=== PATIENT | female | born 1990 ===

== ENCOUNTER 2016-06-11 07:45 | Inpatient (IN) | payer MEDICAID ==
[~2016-06-11] VITALS: Ht 152.4 cm; Wt 55.3 kg
--- NOTE | 2016-06-13 15:13 | OR ---
ADMIT: 06/11/2016 RM/LOC: 218 [facility] MR#: [id number] [id number] [facility] [address] [place] [id number] ARETHALIYA WHITNEYJOCY Sarkar [address] [place] [address] Operative/Delivery Room Report SEX: F AGE: 26 : 1990 SURGERY DATE: 06/11/2016 SURGEON: Phyllis Jensen MD PREOPERATIVE DIAGNOSES: 1. Intrauterine at 39-0/7th weeks. 2. Previous delivery x1. 3. Active labor. 4. Breech presentation. POSTOPERATIVE DIAGNOSES: 1. Intrauterine at 39-0/7th weeks. 2. Previous delivery x1. 3. Active labor. 4. Breech presentation. PROCEDURE: 1. Repeat low transverse . 2. Scar revision. ASSISTING: Sofia Sweet MD ANESTHESIA: Spinal. ESTIMATED BLOOD LOSS: 500 mL. URINE OUTPUT: 75 mL of blood tinged urine. IV FLUIDS: 1400 mL crystalloid. CONDITION: Good. COMPLICATIONS: None. COUNTS: Correct x4 per operating room staff. FINDINGS: 1. A viable male infant delivered in breech presentation at 10:00. Weight 2830 g. scores 8 and 9. 2. Normal maternal anatomy with keloid scar of previous and significant adhesions from the vesicouterine peritoneum to the lower uterine segment. DESCRIPTION OF PROCEDURE: The patient was taken to the operating room where spinal anesthesia was obtained without difficulty. She was then prepared and draped in the normal sterile fashion in the dorsal supine position with a leftward tilt. A Pfannenstiel skin incision was made in an elliptical fashion around the previous keloid scar which was held on tension with Allis clamps and excised with sharp dissection. The incision was then carried through the ADMIT: 06/11/2016 RM/LOC: 218 [facility] MR#: [id number] [address] [phone] JHONNY CARIAS [address] [place] [address] Operative/Delivery Room Report SEX: F AGE: 26 : 1990 underlying layer of fascia. The fascia was then incised in the midline and the incision extended laterally using the Perrin scissors. The superior aspect of the fascial incision was then grasped with the Beba clamps, elevated, and the underlying rectus muscles dissected off with Bovie electrocautery. Attention was then turned to the inferior aspect of this incision which, in a similar fashion, was grasped with the Beba clamps, elevated, and the underlying rectus muscle was dissected off with Bovie electrocautery. The rectus muscles were then in the midline and there was noted to be some adhesions to the peritoneum. The peritoneum was then entered bluntly very high in the abdomen and the incision extended superiorly and inferiorly with good visualization of the bladder. The bladder blade was then inserted and the vesicouterine peritoneum identified, tented up, and entered sharply with the Metzenbaum scissors. This incision was then extended laterally and a bladder flap created digitally. We did have some difficulty identifying the actual bladder as there were some significant amount of filmy adhesions from the vesicouterine peritoneal to the lower uterine segment. The bladder blade was removed and the Ojeda catheter was found. The bladder was noted to be anterior to the uterus well behind the bladder blade. The lower uterine segment was then incised in transverse fashion with the scalpel. The hysterotomy was then extended laterally manually. The infant's breech was elevated through the hysterotomy and delivered to the level of the bilateral scapula. The bilateral arms were then swept medially downward and the head was delivered with fundal pressure. The cord was doubly clamped and cut. The infant was handed off to the awaiting nurse. Cord blood was sent. The infant's weight was 2830 g. scores were 8 and 9. The placenta was then removed by fundal massage of the uterus. The uterus was then exteriorized and cleared of all clots and debris. The uterine incision was then repaired with #1 chromic in a running, locked fashion. A single [id number] stitch was used on the lower uterine segment to obtain excellent hemostasis. There was ADMIT: 06/11/2016 RM/LOC: 218 [facility] MR#: [id number] [address] [id number] JHONNY CARIAS [address] [place] [address] Operative/Delivery Room Report SEX: F AGE: 26 : 1990 some oozing from the multiple filmy adhesions of the vesicouterine peritoneum, which was made hemostatic with Bovie electrocautery. The uterus was then returned to the abdomen and the gutters were cleared of all clots. The hysterotomy was reinspected and found to be hemostatic. All the edges of the vesicouterine peritoneum were reinspected and found to be hemostatic as well. The subfascial compartments were inspected and no bleeding was noted. The fascia was then closed in a running fashion with 0 Vicryl. The subcutaneous tissue was closed in a running fashion with 2-0 Vicryl Rapide. The skin was closed in a subcuticular fashion with 4-0 Vicryl Rapide. The patient tolerated the procedure well. Sponge, lap, and needle counts were correct x4 per operating room staff. The patient and infant were taken to her room in stable condition. Phyllis Jensen MD/ lucila JOB #: [id number] CC: Phyllis Jensen, Attending Physician Phyllis Jensen, Family Physician
[2016-06-14] MEDS ORDERED: PRENATAL VIT1 TAB PO (20:28)
[2016-06-14] MEDS ORDERED: COLACE-DPS100 MG PO (20:29)
[2016-06-14] MEDS ORDERED: PERCOCET 5 DPS1 TAB PO (20:29)
[2016-06-14] MEDS ORDERED: MYLICON DPS80 MG PO (20:29)
[2016-06-14] MEDS ORDERED: MOTRIN-DPS800 MG PO (20:29)
--- NOTE | 2016-06-23 13:00 | HP ---
ADMIT: 06/11/2016 RM/LOC: [facility] MR#: [id number] [facility] [address] [place] [phone] JHONNY CARIAS [address] [place] [address] Pre-OP History and Physical SEX: F AGE: 26 : 1990 DATE OF SERVICE: 06/11/2016 CHIEF COMPLAINT: Need for section. HISTORY OF PRESENT ILLNESS: The patient is a 26-year-old, 3, para 1-1- 0-2, with an intrauterine at 39 and 0/7th weeks by a 10-week ultrasound, who presents to Labor and Delivery for repeat low transverse C- section at term. PAST MEDICAL HISTORY: 1. Gestational thrombocytopenia. 2. History of delivery. 3. Short interpregnancy interval. 4. Maternal atypical antibodies complicating . 5. Keloid scar. 6. History of hemorrhage and blood transfusion. 7. Female genital mutilation. PAST SURGICAL HISTORY: delivery in 2012. FAMILY HISTORY: Noncontributory. SOCIAL HISTORY: The patient denies alcohol, tobacco, or illicit drug use. She is and unemployed. MEDICATIONS: vitamins 1 tablet p.o. daily. ALLERGIES: NO KNOWN MEDICAL ALLERGIES. REVIEW OF SYSTEMS: The patient denies vaginal bleeding, uterine contractions, loss of fluid, or decreased movement. OBSTETRICAL LABORATORIES: Blood type O positive. Antibody screen was also positive, but report states "an antibody has been detected in the patient's plasma that reacts weakly with the identification cells used for testing. We are unable to determine the specificity of the antibody at this time and recommended the antibody screen would be repeated in 4 to 6 weeks if clinically indicated." RPR nonreactive. Rubella immune. HIV negative. Hepatitis B surface antigen negative. Hemoglobin electrophoresis, normal A/A phenotype. Pap smear negative for intraepithelial lesion or malignancy. High- risk HPV not detected. Quad screen negative. Diabetic screen 143. Three-hour glucose tolerance test 87, 150, 76, 65. Group B strep negative. PHYSICAL EXAMINATION: GENERAL: Well-developed, well-nourished female, alert and oriented x3, in no acute distress. VITAL SIGNS: Blood pressure 110/62, weight 125.6 pounds, and height 59 inches. HEENT: Head is normocephalic, atraumatic. Pupils are equal, round, reactive. Extraocular muscles are intact. NECK: Supple. Trachea midline. Thyroid not palpable. ADMIT: 06/11/2016 RM/LOC: [facility] MR#: [id number] [address] [id number] JHONNY CARIAS [address] [place] [address] Pre-OP History and Physical SEX: F AGE: 26 : 1990 HEART: Regular rate and rhythm. LUNGS: Clear to auscultation bilaterally. ABDOMEN: Soft, nontender, and gravid. EXTREMITIES: No clubbing, cyanosis, or edema. NEUROLOGIC: Cranial nerves II through XII grossly intact, 2+ deep tendon reflexes noted. SKIN: On the lower abdomen, there is a Pfannenstiel incision with a keloid scar. ASSESSMENT AND PLAN: This is a 26-year-old, 3, para 1-1-0-2, with an intrauterine at 39-0/7th weeks by a 10-week ultrasound, who presents to Labor and Delivery for repeat low transverse at term. The risks, benefits, and alternatives including bleeding (occasionally requiring transfusion), infection, and damage to nearby organs, including bowels and bladder have been discussed with the patient, who expressed her understanding and agreed to proceed). The patient also has a keloid scar from her previous C- section, which will be revised at the time of surgery. The procedures have been scheduled for June 11, 2013. Phyllis Jensen MD/ lucila JOB #: [id number] CC: Phyllis Jensen, Attending Physician Phyllis Jensen, Family Physician
--- NOTE | 2016-08-21 08:00 | DS ---
ADMIT: 06/11/2016 RM/LOC: 218 [facility] MR#: [id number] [address] [address] JHONNY CARIAS [address] [place] [address] General Discharge Summary SEX: F AGE: 26 : 1990 ADMISSION DATE: 06/11/2016 DISCHARGE DATE: 06/14/2016 ADMISSION DIAGNOSES: 1. A 26-year-old, 3, para 1-1-0-2 with intrauterine at 39 and 0/7th weeks. 2. Gestational thrombocytopenia. 3. History of delivery. 4. Short interpregnancy interval. 5. Maternal atypical antibodies complicating . 6. Keloid scar. 7. History of hemorrhage and blood transfusion. 8. Female genital mutilation. DISCHARGE DIAGNOSES: 1. Status post repeat low transverse section. 2. Gestational thrombocytopenia. 3. History of delivery. 4. Short interpregnancy interval. 5. Maternal atypical antibodies complicating . 6. Keloid scar - surgically excised. 7. History of hemorrhage and blood transfusion. 8. Female genital mutilation. SERVICE: Obstetrics. PHYSICIAN: Phyllis Jensen MD CONSULTS: None. PROCEDURES: Repeat low transverse on 06/11/2016. HISTORY AND PHYSICAL EXAM: Briefly, the patient is a 26-year-old, 3, para 1-1-0-2 with an intrauterine at 39 and 0/7th weeks by 10-week ultrasound, who presented to Labor and Delivery for repeat low transverse C- section at term due to history of previous delivery. Upon admission, the patient was noted to be in active labor, which also necessitated delivery. Please see dictated history and physical exam for more information. HOSPITAL COURSE: On hospital day #1, the patient was admitted and underwent repeat low transverse without complication. Please see dictated operative report for more information. On postoperative day #1, the patient's pain was well controlled. She was tolerating a regular diet. Hemoglobin had decreased appropriately and vital signs were stable. On postoperative day #2, the patient continued to improve. She was passing gas and voiding without difficulty and was felt to be stable for discharge. DISPOSITION: Discharged to home. ADMIT: 06/11/2016 RM/LOC: 218 [facility] MR#: [id number] [address] [address] JHONNY CARIAS [address] [place] [address] General Discharge Summary SEX: F AGE: 26 : 1990 DISCHARGE CONDITION: Good. DISCHARGE MEDICATIONS: 1. Colace 100 mg p.o. b.i.d. 2. Mylicon 80 mg p.o. t.i.d. p.r.n. 3. vitamins 1 tablet p.o. daily. 4. Motrin 800 mg p.o. q.8 hours p.r.n. pain. 5. Percocet 5/325, 1 to 2 p.o. q.4 hours p.r.n. pain. DISCHARGE INSTRUCTIONS: The patient is to maintain pelvic rest for [address] while taking narcotics and no lifting greater than 10 to 15 pounds. The patient is to follow up with Dr. Sweet at the [facility] for a 6- week check. She is to call the clinic or return to the nearest emergency room should she experience pain not controlled by pain medications, heavy vaginal bleeding, intractable nausea or vomiting, temperature greater than 100.4 degrees Fahrenheit, or any incisional concerns. Phyllis Jensen MD/ lucila JOB #: [id number] CC: Phyllis Jensen MD, Attending Physician Phyllis Jensen MD, Family Physician
== END 2016-06-14 12:30 | disposition home or self-care (01) | DRG 765 ==
LOC: BC 07:45 → 2LDRP 07:45 → BC 06-18 08:00
PROVIDERS: ADMIT Obstetrics & Gynecology
DX: O34.211 Maternal care for low transverse scar from previous cesarean delivery (principal); O99.12 Other diseases of the blood and blood-forming organs and certain disorders involving the immune mechanism complicating childbirth; D69.6 Thrombocytopenia, unspecified; O32.1XX0 Maternal care for breech presentation, not applicable or unspecified; O99.89 Other specified diseases and conditions complicating pregnancy, childbirth and the puerperium; N85.8 Other specified noninflammatory disorders of uterus; N73.6 Female pelvic peritoneal adhesions (postinfective); L91.0 Hypertrophic scar; Z37.0 Single live birth; Z3A.39 39 weeks gestation of pregnancy

== ENCOUNTER 2016-06-21 16:23 | Emergency (ER) | payer MEDICAID ==
[~2016-06-21 16:23] MED LIST: COLACE-DPS100 MG PO; MOTRIN-DPS800 MG PO; MYLICON DPS80 MG PO; PERCOCET 5 DPS1 TAB PO; PRENATAL VIT1 TAB PO
--- NOTE | 2016-06-29 08:11 | ER ---
ADMIT: 06/21/2016 RM/LOC: ER [facility] MR#: [id number] [id number] [facility] [address] [place] [phone] ARETHALIYA WHITNEYJOCY Sarkar [address] [place] [address] Emergency Room Report SEX: F AGE: 26 : 1990 DATE: 06/21/2016 ADDENDUM: CHIEF COMPLAINT: Rectal bleeding. HISTORY OF PRESENT ILLNESS: This is a 26-year-old female who is 2 weeks . In the last 2 days, she has just been constipated. She has been trying to have a bowel movement. They are very hard and painful, so when she has them, she has a little bit of blood. PHYSICAL EXAMINATION: She does have some fresh blood and there is a hemorrhoid. I told her to continue her Dulcolax, but also to add MiraLax 1 cap full twice a day. Continue to push fluids. I told her to hold or at least limit the Percocet that she was prescribed for pain. If no BM in a couple days, I told her she should buy [id number] suppository or Fleet Enema to help with the bowel movement. CLINICAL IMPRESSION: Constipation and hemorrhoid secondary to childbirth and opiate usage. NICOLE Rios / Anurag Carr MD / bril JOB #: [id number] CC: Anurag Carr MD, Attending Physician
== END 2016-06-21 17:23 | disposition home or self-care (01) ==
LOC: ER 16:23
DX: O87.2 Hemorrhoids in the puerperium (principal); K59.00 Constipation, unspecified